=== PATIENT | female | born 1965 | race African-American/Black ===

== ENCOUNTER 2024-05-16 09:00 | Outpatient (CLI) | payer MEDICAID, SELFPAY ==
--- NOTE | 2024-05-23 12:45 | RAD_ITS ---
INDICATION: PRE-OP EXAMINATION/TECHNIQUE: X-RAY - XR Chest 2 Views COMPARISON: No relevant prior comparison study available FINDINGS: LINES/DEVICES: None. LUNGS: No consolidation. No pneumothorax. MEDIASTINUM: Unremarkable. CARDIAC SILHOUETTE: Not enlarged. BONES AND SOFT TISSUES: No acute abnormalities. RAD/Chest PA and Lateral IMPRESSION: No evidence of active intrathoracic disease. Electronically Signed: Violet Naranjo MD at 7:55 EDT ,
[2024-05-23 13:36] LABS: Absolute Lymphocyte Count 1.76 X10^3/uL (0.83-4.51); Absolute Neutrophil Count 3.2 X10^3/uL (2.0-7.7); Basophil# 0.03 X10^3/uL; Basophil% 0.5 % (0-1); Eosinophils% 1.8 % (0-5); Hematocrit 43.5 % (37-47); Lymphocyte # 1.76 X10^3/ul (0.83-4.51); Lymphocyte % 31.7 % (19-41); Mean Corp Hgb Conc 32.2 g/dL (32-36); Mean Corpuscular Hgb 28.5 pg (27.0-32.0); Mean Corpuscular Volume 88.4 fL (81-99); Mean Platelet Vol. 9.6 fl (6.2-12.0); Monocyte# 0.42 X10^3/uL; Monocyte% 7.6 % (0-10); NRBC Flagged by Analyzer 0 % (0-5); Neutrophil # 3.24 X10^3/uL (2.7-7.7); Neutrophil % 58.2 % (47-70); Platelet Count 313 K/mm3 (150-450); RBC Distribution Width CV 13.7 % (11.6-14.6); RBC Distribution Width SD 44.5 fl (35.1-43.9); Red Blood Count 4.92 M/mm3 (4.2-5.4); White Blood Count 5.6 K/mm3 (4.4-11.0)
[2024-05-23 14:08] LABS: Magnesium 2.1 mg/dL (1.6-2.6)
[2024-05-23 14:11] LABS: Anion Gap 3 (5-15); BUN 15 mg/dL (7-18); BUN/Creat Ratio 18.7 RATIO (10-20); Calcium,Total 9.6 mg/dL (8.5-10.1); Chloride 105 mmol/L (98-107); EST Glomerular Filtration Rate 78 mL/min (>60); Est Glom Filt Rate - Afr Amer 94 mL/min (>60); Glucose 95 mg/dL (74-106); Potassium 3.5 mmol/L (3.5-5.1); Sodium Level 138 mmol/L (136-145)
== END 2024-05-16 23:00 | disposition home or self-care (01) ==
LOC: SDC 12-28 21:19
PROVIDERS: Anesthesiology; Referring Provider Orthopaedic Surgery; Visit Provider Orthopaedic Surgery
DX: Z01.818 Encounter for other preprocedural examination (principal)
CPT/HCPCS: J3475; 36415; 71046; 80048; 83735; 85025; 87081; 93005

== ENCOUNTER 2024-09-12 05:36 | Day surgery (SDC) | payer MEDICAID, SELFPAY ==
[2024-09-06 13:45] LABS: Absolute Lymphocyte Count 2.08 X10^3/uL (0.83-4.51); Basophil# 0.04 X10^3/uL; Basophil% 0.6 % (0-1); Eosinophil# 0.08 X10^3/uL; Eosinophils% 1.2 % (0-5); Hematocrit 41.4 % (37-47); Hemoglobin 13.5 g/dL (12.0-15.0); Lymphocyte # 2.08 X10^3/ul (0.83-4.51); Lymphocyte % 31.2 % (19-41); Mean Corp Hgb Conc 32.6 g/dL (32-36); Mean Platelet Vol. 10.2 fl (6.2-12.0); Monocyte# 0.48 X10^3/uL; Monocyte% 7.2 % (0-10); NRBC Flagged by Analyzer 0 % (0-5); Neutrophil # 3.96 X10^3/uL (2.7-7.7); Neutrophil % 59.5 % (47-70); Platelet Count 317 K/mm3 (150-450); RBC Distribution Width CV 13.1 % (11.6-14.6); RBC Distribution Width SD 42.5 fl (35.1-43.9); Red Blood Count 4.65 M/mm3 (4.2-5.4); White Blood Count 6.7 K/mm3 (4.4-11.0)
[2024-09-06 14:03] LABS: Anion Gap 6 (5-15); BUN 14 mg/dL (7-18); BUN/Creat Ratio 18.6 RATIO (10-20); Calcium,Total 9.5 mg/dL (8.5-10.1); Chloride 107 mmol/L (98-107); Creatinine, Serum 0.75 mg/dL (0.55-1.02); EST Glomerular Filtration Rate 84 mL/min (>60); Est Glom Filt Rate - Afr Amer 101 mL/min (>60); Glucose 91 mg/dL (74-106); Sodium Level 141 mmol/L (136-145)
[2024-09-06 19:43] LABS: Magnesium 2.1 mg/dL (1.6-2.6)
[2024-09-12] VITALS (15 sets, daily range): BP systolic 108–155; BP diastolic 59–87; PULSE 48–94; RESP 16–18; TEMP 36.2–36.7; O2SAT 92–100; BMI 29.7
--- NOTE | 2024-09-12 | HIP_PTH ---
PATIENT: JASE DIGGS [place] [facility] [id number] AGE/SX: 58/F ROOM: RE09/12/[address]: Dr. Saul Hussein DO : 1965 BED: DIS: 09/12/2024 SPEC #: [id number] RECD: 09/12/24 09:43 STATUS: MAO LENI #: [id number] CORONA: 09/12/24 00:[address]: Saul Hussein DEPT: SURGICAL PATHOLOGY RECD BY: Jeanette Jules Tissues: Hip, NOS Procedures: Decalcification bone/plaque Surgery Specimen Level IV HEADER OPERATION: ERAS, total hip replacement PRE-OP DIAGNOSIS: Osteoarthritis TISSUE SUBMITTED: Bone and soft tissue of right hip MICROSCOPIC DIAGNOSIS Right hip bone and soft tissue, total hip replacement/resection: Femoral head with severe degenerative osteoarthritic changes. NATANAEL: 09/15/2024 MICROSCOPIC DESCRIPTION Slides are reviewed. GROSS DESCRIPTION Received is one container labeled with the patient's name and designated bone and soft tissue right hip. The specimen consists of a du femoral head. The femoral head measures 6.0cm in height and 4.5cm in diameter. The articular surface is rough and irregular. The subchondral bone is eburnate. Also present in the specimen container are multiple irregular fragments of bone reamings and pink-yellow soft tissue measuring in aggregate 8.0 x 8.0x 2.0 cm. [employer] Teacher sections are submitted in three cassettes as follows: 1 - soft tissue, 2&3 - bone after decalcification. / 09/12/2024 TC:5 CPT: 69929, 66529
[2024-09-12] MEDS: Lactated Ringers 1,000 ML 15 ML IV (06:12)
[2024-09-12] MEDS: Magnesium 1 GM over 15 mins IV (06:12)
[2024-09-12] MEDS: Gabapentin 600 MG Tablet PO (06:35)
[2024-09-12] MEDS: Acetaminophen 500 MG Tablet 1000 MG PO (06:35)
[2024-09-12] MEDS: Celecoxib 200 MG Capsule 400 MG PO (06:36)
[2024-09-12 06:41] LABS: Bedside Glucose 75 mg/dL (74-106)
--- NOTE | 2024-09-12 07:06 | PRE.ANES_ITS ---
ASA Classification* ASA Classification ASA Classification: 2 Assessment & Plan Anesthesia* Anesthesia Assessment Anesthesia Assessment: Discussed sedation and/or anesthesia options, risks, benefits, and alternatives with patient/parents/legal guardian/POA. Questions invited. The patient/parents/legal guardian/POA seems to understand and agrees to proceed with anesthesia plan. Reviewed the physical assessment, medical history, allergy history and patient home medications list prior to surgery/procedure/anesthetic and documented any changes. Performed airway and anesthesia risk assessments. Anesthesia Type Anesthesia Type: Spinal Anesthesia Focused Assessment* Temperature: 98.0 F Pulse Rate: 87 Blood Pressure: 155/67 Respiratory Rate: 18 Pulse Ox: 100 Airway Assessment Mouth opens: >3 cm Mallampati Score: II Focused Labs Anesthesia Preop lab: CBC WBC 6.7 K/mm3 (4.4-11.0) 09/06/24 12:10 RBC 4.65 M/mm3 (4.2-5.4) 09/06/24 12:10 Hgb 13.5 g/dL (12.0-15.0) 09/06/24 12:10 Hct 41.4 % (37-47) 09/06/24 12:10 Plt Count 317 K/mm3 (150-450) 09/06/24 12:10 CHEMISTRY Potassium 4.0 mmol/L (3.5-5.1) 09/06/24 12:10 Sodium 141 mmol/L (136-145) 09/06/24 12:10 Magnesium 2.1 mg/dL (1.6-2.6) 09/06/24 12:10 BUN 14 mg/dL (7-18) 09/06/24 12:10 Creatinine 0.75 mg/dL (0.55-1.02) 09/06/24 12:10 Glucose 91 mg/dL (74-106) 09/06/24 12:10 POC Glucose 75 mg/dL (74-106) 09/12/24 06:17 COAG Pre-Assessment Diagnosis/Proposed Procedure Planned Operative Procedure(s): RIGHT TOTAL HIP ARTHROPLASTY Anesthesia History 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 When Was Last Pacemaker Check QUESTION #4 FULL TEXT: You/Your Family Experience fever (hyperthermia) with Anesthesia Last Oral Intake Last Oral intake: Last Oral Intake NPO since 04:00 09/12/24 06:21 Meds taken in AM with sips of water? Meds patient instructed to take am of surgery PONV PONV - photogrammetric surveyor: PONV - photogrammetric surveyor Female Yes 08/26/24 15:04 HX of Motion Sickness No 08/26/24 15:04 HX of N/V After Surgery No 08/26/24 15:04 Non-Smoker Yes 08/26/24 15:04 Duration of Surgery greater Yes 08/26/24 15:04 than 60 minutes Number of Risk Factors 3 08/26/24 15:04 PONV Score Moderate Risk 08/26/24 15:04 Height & Weight Height & Weight: Anesthesia: Height & Weight Height 5 ft 5 in 09/12/24 06:21 Weight: 81 kg 09/12/24 06:21 Body Mass Index (BMI) 29.7 09/12/24 06:21 Respiratory Assessment Respiratory Assessment - photogrammetric surveyor: Respiratory Tract Infection Hx - photogrammetric surveyor Hx Respiratory Tract Infection No 08/26/24 15:04 STOP Sleep Apnea STOP Sleep Apnea - photogrammetric surveyor: STOP Sleep Apnea - photogrammetric surveyor Hx Hypertension No 08/26/24 15:04 Hx Sleep Apnea No 08/26/24 15:04 CPAP BIPAP Do you snore loudly (louder No 08/26/24 15:04 than talking or can be heard Do you often feel tired/ Yes 08/26/24 15:04 fatigued/ sleepy during daytime? Has anyone observed you stop No 08/26/24 15:04 breathing during sleep? STOP Results Negative 08/26/24 15:04 QUESTION #5 FULL TEXT : Do you snore loudly (louder than talking or can be heard through closed doors)? 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 Specify any problems Hx of Preganancy in last 3 No 08/26/24 15:04 Months Nurse Filling Out Transfusion DSCHRIBER 08/26/24 15:04 & Questions: Date: 08/26/24 08/26/24 15:04 Time: 15:06 08/26/24 15:04 Patient unable to answer at this time (ie. confused, unrespo /Reproduction History /Reproductive History - photogrammetric surveyor: /Reproductive Hx- photogrammetric surveyor Hx Now No 08/26/24 15:04 Gestational Age (in weeks): EDC: Hx Hx Para Hx Section SAB No 08/26/24 15:04 Active Medications Active Medications: Current Medications Generic Name Dose Route Start Last Admin Trade Name Freq PRN Reason Stop Dose Admin Acetaminophen 1,000 mg 09/12/24 07:30 09/12/24 06:35 Acetaminophen 500 Mg Tablet PO 09/12/24 07:31 1,000 mg X1 ONE Administration Celecoxib 400 mg 09/12/24 07:30 09/12/24 06:36 Celecoxib 200 Mg Capsule PO 09/12/24 07:31 400 mg X1 ONE Administration Sodium Chloride 77.4 ml/ 0 ml 09/12/24 07:30 Ropivacaine 200 mg/ OPERA.SITE 09/12/24 07:31 Epinephrine HCl 0.6 mg/ X1 ONE Ketorolac Tromethamine 30 mg/ Morphine Sulfate 5 mg Gabapentin 600 mg 09/12/24 07:30 09/12/24 06:35 Gabapentin 600 Mg Tablet PO 09/12/24 07:31 600 mg X1 ONE Administration Tranexamic Acid 1,000 mg/ 110 mls @ 660 mls/hr 09/12/24 07:30 Sodium Chloride IV 09/12/24 07:39 X1 ONE Tranexamic Acid 1,000 mg/ 110 mls @ 660 mls/hr 09/12/24 08:30 Sodium Chloride IV 09/12/24 08:39 X1 ONE Cefazolin Sodium 2 gm/ N/A 20 mls @ 400 mls/hr 09/12/24 07:30 IV 09/12/24 07:32 PREOP ONE Magnesium Sulfate 1 gm/ 102 mls @ 408 mls/hr 09/12/24 07:30 09/12/24 06:12 Dextrose IV 09/12/24 07:44 408 mls/hr X1 ONE Administration Lactated Ringer's 1,000 mls @ 15 mls/hr 09/12/24 06:15 09/12/24 06:12 IV 09/17/24 19:34 15 mls/hr .Q48H JAHAIRA Administration Protocol Insulin Human Lispro 1 - 6 unit 09/12/24 07:30 Insulin Lispro 100 Unit/Ml Insuln.Pen SC Q4H PRN PRN BG>/= 180, SEE PROTOCOL Protocol PFSH Medical History Heartburn Wears glasses Wears dentures Post-menopausal Alcohol use Arthritis Back pain Former smoker History of pain when walking Home Medications ?Medication ?Instructions ?Recorded ?Last Taken ?Type acetaminophen 325 mg tablet (Pain 650 mg PO Q4H PRN pain 05/16/24 Unknown History Relief (acetaminophen)) Allergy/AdvReac Type Severity Reaction Status Date / Time No Known Allergies Allergy Verified 09/12/24 06:01 Surgical History Hx of section Hx of tubal ligation Social History Smoking Status: Former smoker Review of Systems (Anesthesia) ROS Narrative System reviewed and no additional complaints, except as documented.
[2024-09-12] MEDS: Cefazolin 2 GM in Syringe IV (07:27)
[2024-09-12] MEDS: TXA 1000mg in NS100 100ml (IVPB at Incision) 660 MG IV (07:40)
[2024-09-12] MEDS: JPS (Morphine 10mg/ml) OPERA.SITE (08:31)
[2024-09-12] MEDS: TXA 1000mg in NS100 100ml (IVPB at Closure) 660 MG IV (09:02)
--- NOTE | 2024-09-12 09:13 | RAD_ITS ---
INDICATION: post op -- in PACU EXAMINATION/TECHNIQUE: X-RAY - XR Hip Unilateral with Pelvis when performed; 2-3 Views COMPARISON: No relevant prior comparison study available FINDINGS: HIPS: Total right hip arthroplasty in satisfactory alignment. Narrowing of the left hip joint. Subchondral cystic changes in the left femoral head. Avascular necrosis cannot be excluded. SOFT TISSUES: Gas in the soft tissues of the right hip consistent with recent surgery. RAD/Hip Min 2 Views (Portable) IMPRESSION: 1. Status post right hip arthroplasty. 2. 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 Electronically Signed: Tal Contreras MD at 10:03 EST ,
--- NOTE | 2024-09-12 09:28 | PCM.POST.ANE ---
Anesthesia: Postop Eval I Current Vital Signs Temperature: 97.6 F Pulse Rate: 85 Blood Pressure: 122/71 Respiratory Rate: 18 Pulse Ox: 96 Oxygen Delivery Method: Nasal Cannula Oxygen Flow Rate (L/min): 4 Assessment Airway patent: Yes Spontaneous unlabored respirations: Yes Mental status: Awake nausea: No Vomiting: No Anesthesia Complication: No Fluid Hydration Crystalloid volume administer (ml): 1,500 Total IV fluid infused: 1,500 Progress Note Anesthesia document: Postop Eval 1 completed: No
--- NOTE | 2024-09-12 09:39 | OP.PCM_ITS ---
Operative Report (Standard) Operative Information Surgery/Procedure Performed: Right total hip arthroplasty Surgeon: Saul Hussein Date of Procedure: 09/12/24 Procedure Start Time: 07:56 Procedure Stop Time: 09:20 Pre-Operative Diagnosis: Right hip osteoarthritis Post-Operative Diagnosis: Right hip osteoarthritis Select all DRAINS/GRAFTS/IMPLANTS that apply: None (See operative report below) Type of Anesthesia: MAC and Spinal Estimated Blood Loss: 50 cc Fluids Replaced: Per anesthesia record Specimen collected: Yes Description of specimen(s) removed: Right femoral head Description of surgery: Preoperative diagnosis: Right hip primary osteoarthritis Postoperative diagnosis: Right hip primary osteoarthritis Procedure: Right total hip arthroplasty Surgeon: Saul Hussein DO Gr[employer] 9 [employer] 12 Teacher: Zainab Baker PA-C Anesthesia: General endotracheal Anesthesiologist: Dr. Potter Complications: None apparent Drains: None Estimated blood loss: 50 cc Urinary output: none recorded IV fluids: Per anesthesia record Specimens: Femoral head Surgical implants: Abel insignia high offset size #1, Biolox delta ceramic V40 femoral head 36 mm outer diameter +5 mm neck length, Abel Trident X3 standard polyethylene insert, Trident 2 TriTanium cluster hole acetabular shell 50 mm diameter, 6.5 mm hexhead 25 mm length cancellous screw Indications: This is an 58-year-old female seen in the outpatient setting for right hip pain. X-rays revealed severe right hip osteoarthritis. She failed oral [id number] analgesics including NSAIDs and Tylenol, activity modification. I recommended surgical intervention the form of right total hip arthroplasty. I reviewed the procedure with the patient, its risk, benefits, alternatives. Risks included but were not limited to bleeding, infection, loss of life or limb, risk of anesthesia, neurovascular injury, persistent pain, instability, need for additional surgery, failure of orthopedic hardware, loosening, osteolysis, need for assistive devices long-term, leg length discrepancy. Patient expressed understanding wish to proceed with surgery. Description of procedure: I greeted the patient in same-day surgery holding area the day of surgery. He was identified by name, medical record number, and date of . All questions were answered to patient satisfaction. The operative extremity was marked with a surgical marker. Informed consent was confirmed with the patient. Patient was brought the operative suite. She was positioned in the position seated for a spinal anesthetic. Successful spinal anesthetic was administered by anesthesia staff. She was repositioned supine. Gentle MAC anesthesia was administered. Patient was then positioned in a lateral decubitus position with the right side up. An axillary roll was placed under the patient's left axilla. The left fibular head was free. We then prepped and draped the right lower extremity in normal, sterile orthopedic fashion. We performed a timeout with all parties in attendance in agreement with the side, site, and operation to be performed. No concerns were voiced and would like to proceed. 1 g TXA IV as well as 2 g Ancef was administered prior to the incision by anesthesia staff. 1 g TXA IV was administered at time of closure additionally. A standard posterior lateral incision was made curvilinear over the posterior lateral hip, centered on the tip of the greater trochanter. Full-thickness skin incision was made, approximately 12 cm in length. I sharply dissected down the level of the fascia rafaela. Fascia rafaela was then incised in line with the i ncision. I bluntly dissected through the raphae of the gluteus katherine. I then internally rotated the hip. Limited gluteal bursectomy was performed to identify the short external rotators. A Cobra retractor was placed beneath the gluteus medius. Short external rotators were taken down with Bovie cautery and tagged for later repair with #2 Ethibond suture. This identified the underlying capsule. A hockey-stick shaped capsulotomy was made over the femoral neck carried posteriorly to the acetabular labrum. Labrum was released and the hip was dislocated. I then marked a standard femoral neck cut 1 fingerbreadth above the lesser trochanter. Sagittal saw was used to carefully cut the femoral neck. Femoral head was removed and examined and appeared benign. It was sent to pathology per hospital policy. I then turned my attention to the acetabulum. Cobra retractors were placed anterior and posteriorly. Self-retaining retractor was placed superiorly. Acetabular labrum was excised with a long handled knife. Acetabular pulvinar was excised with Bovie cautery. Hemostasis was excellent at this point. I then medialized with a 45 mm reamer to the floor the acetabulum. We then sequentially reamed to a final outer diameter of 50 mm. There was excellent bleeding bone. A 50 mm shell was selected for and impacted. There was a large anterior osteophyte which was removed with osteotomes and rongeur. A single 25 mm cancellous screw was placed within the superior portion of the shell for additional fixation. A 0 degree liner was then impacted in standard fashion. The leg was then brought into internal rotation and flexion. Box chisel was then utilized to gain access to the femoral canal. Canal finder was placed. Sequential broaches were used and press-fit manner. A final size 1 achieved excellent vertical and rotational stability. We then trialed with a high offset hip stem as templated. A + 2.5 and +5 mm neck length were trialed. The +5 mm neck achieved greater stability as well as allowed some lengthening of the limb, which was desired given his contralateral hip osteoarthritis. Trials were then removed. We copiously irrigated the wound with dilute sterile Betadine. This was allowed to soak in the wound for 3 minutes. Wound was then copiously irrigated with normal saline solution. A size 1 stem was then impacted with excellent fixation. Final head was then impacted over clean, dry Le taper neck. Final reduction was performed. A posterior capsular repair was performed with #2 Ethibond suture and bone tunnels, as well as the short ext ernal rotator repair. IT band was closed watertight with #1 strata fix suture. Deeper fascial layers were closed with 0 Vicryl suture in interrupted fashion. Subcutaneous layers were reapproximated with 2-0 Vicryl suture and skin reapproximated with running subcuticular 3?0 strata fix and skin glue. Pelvic array incision was closed with buried 2-0 Vicryl suture and skin glue. A silver dressing was applied. Patient tolerated procedure well without complication. She was positioned back in the supine position on her hospital bed. She was awakened from anesthesia. She was transferred to PACU in stable condition. A pillow was placed between the patient's leg to be present while she is in bed. Need for skilled miller head assistant wet process: Zainab Baker PA-C was critical to the outcome of the case. During the course of the procedure the physician miller head assistant wet process played a vital role. Her intimate knowledge of my steps in the procedure aided in safe and expedient completion of the procedure. The PA played a vital role in positioning particularly in obtaining the appropriate positioning. The PA was also vital in the retraction of soft tissues during the exposure and projecting vital structures. The PA was also vital and protecting soft tissues during times of bony cuts. She also played a vital role in closure with my direct supervision. The PA was also important during reduction and dislocation of the joint and trials intraoperatively. Post Operative Plan: Plan for same-day discharge today once criteria are met. Weightbearing: Weightbearing as tolerated right lower extremity, posterior hip precautions. Pillows between legs while in bed Antibiotics: Ancef 1 g every 8 hours x 3 doses DVT Prophylaxis: Aspirin 81 mg twice daily to start tomorrow [place]: None Dressing: Maintain silver dressing x 5 days X-Rays: PACU x-rays were reviewed demonstrated well-positioned right total hip arthroplasty implant. Follow-up 2-week x-rays in the office. Follow-up: 2 weeks in my office as scheduled. Physical therapy to start in 2 days. Surgical Findings: Severe right hip osteoarthritis. Stable hip following implantation. Recovery Room Nurse policy service coordinator: Yes Grades 9 Through 12 Teacher: Zainab Baker Tasks completed by technical assistance consultant: Opening & closing, Implanting device, Hemostasis: Electrocautery and Retracting Additional miller head assistant wet process?: No Complications Complications: No Admit VTE Documentation VTE Present on Admission: No VTE Mechan Device Prophylaxis: SCD's and Thigh High MAXIME Hose VTE Pharm Prophylaxis ordered?: Yes
--- NOTE | 2024-09-12 10:11 | POSTOPAN2_ITS ---
Anesthesia Postop Eval I Sum Postop Eval Completion status Anesthesia document: Postop Eval 1 completed: No Anesthesia Postop Eval I Summary Anesthesia Postop Eval I Summary: Anesthesia Postop Eval I: Assessment Summary Airway patent Yes 09/12/24 09:29 [email or web address] Spontaneous unlabored Yes 09/12/24 09:29 [email or web address] respirations Mental status Awake 09/12/24 09:29 [email or web address] nausea No 09/12/24 09:29 [email or web address] Vomiting No 09/12/24 09:29 [email or web address] Anesthesia Postop Eval I: Fluid Summary Crystalloid volume administer 1,500 09/12/24 09:29 [email or web address] (ml) Colloids volume administered ( ml) Blood Product volume administered (ml) Total IV fluid infused 1,500 09/12/24 09:29 [email or web address] Anesthesia Postop Eval I: Summary Notes Anesthesia Complication No 09/12/24 09:29 [email or web address] Anesthesia Complication Comment: Post-operative progress note Anesthesia: Postop Eval II Evaluation Mental status: Awake Pain Level: 0 nausea: No Vomiting: No
--- NOTE | 2024-09-12 10:11 | PCM.POSTANE2 ---
Anesthesia Postop Eval I Sum Postop Eval Completion status Anesthesia document: Postop Eval 1 completed: No Anesthesia Postop Eval I Summary Anesthesia Postop Eval I Summary: Anesthesia Postop Eval I: Assessment Summary Airway patent Yes 09/12/24 09:29 [email or web address] Spontaneous unlabored Yes 09/12/24 09:29 [email or web address] respirations Mental status Awake 09/12/24 09:29 [email or web address] nausea No 09/12/24 09:29 [email or web address] Vomiting No 09/12/24 09:29 [email or web address] Anesthesia Postop Eval I: Fluid Summary Crystalloid volume administer 1,500 09/12/24 09:29 [email or web address] (ml) Colloids volume administered ( ml) Blood Product volume administered (ml) Total IV fluid infused 1,500 09/12/24 09:29 [email or web address] Anesthesia Postop Eval I: Summary Notes Anesthesia Complication No 09/12/24 09:29 [email or web address] Anesthesia Complication Comment: Post-operative progress note Anesthesia: Postop Eval II Evaluation Mental status: Awake Pain Level: 0 nausea: No Vomiting: No
[2024-09-12] MEDS: Cefazolin 1 GM/50 ML BAG IV (13:30)
== END 2024-09-12 15:31 | disposition home or self-care (01) ==
LOC: SDC 05:38 → AC 05:38
PROVIDERS: Anesthesiology; Referring Provider Student in an Organized Health Care Education/Training Program; Visit Provider Student in an Organized Health Care Education/Training Program
PROC: 0SR90JZ Replacement of Right Hip Joint with Synthetic Substitute, Open Approach (ICD-10-PCS; CPT 27130; principal; 2024-09-12 07:10)
DX: M16.11 Unilateral primary osteoarthritis, right hip (principal); E66.3 Overweight; Z68.28 Body mass index [BMI] 28.0-28.9, adult; Z87.891 Personal history of nicotine dependence
CPT/HCPCS: 27130; 01214; 36415; 73502; 80048; 82962; 83735; 85025; 87081; 88305; 88311; 97162; C1713; C1776; J7120; J2405; J3475